=== PATIENT | male | born 1965 | race Caucasian/White ===

== ENCOUNTER 2016-10-07 19:02 | Inpatient (IN) ==
--- NOTE | 2016-10-07 19:54 | PROVIDER DOCUMENTATION ---
This chart was entered by Socorro Alejo Scribe, acting as scribe for Cruzito White MD. HPI-General Adult - General Chief Complaint: Abnormal Lab[s] Stated Complaint: SODIUM LEVEL LOW Time Seen by Provider: 10/07/16 19:35 Source: other (care transition coordinator) Allergies/Adverse Reactions: Patient Allergies Allergy/AdvReac Type Severity Reaction Status Date / Time No Known Allergies Allergy Verified 10/07/16 19:46 Home Medications: Home Medication List Medication Instructions Recorded Confirmed Last Taken Type Buspirone HCl 15 mg PO TID 05/30/14 07/28/15 07/28/15 15:00 History Docusate Sodium 100 mg PO PRN PRN 05/30/14 07/28/15 05/13/15 08:00 History Enalapril Maleate [Vasotec] 10 mg PO DAILY 05/30/14 07/28/15 07/28/15 07:00 History Fluoxetine [Prozac] 40 mg PO DAILY 05/30/14 07/28/15 07/28/15 07:00 History LOVAstatin [Mevacor] 40 mg PO QHS 05/30/14 07/28/15 07/27/15 19:00 History Levetiracetam 500 mg PO BID 05/30/14 07/28/15 07/28/15 07:00 History Levothyroxine [Synthroid] 25 microgm PO DAILY 05/30/14 07/28/15 07/28/15 07:00 History Lorazepam 1 mg PO BID 05/30/14 07/28/15 07/28/15 07:00 History Metformin HCl 1,000 mg PO BID 05/30/14 07/28/15 07/28/15 07:00 History Metoprolol Succinate E.r. [Toprol 100 mg PO DAILY 05/30/14 07/28/15 07/28/15 07: 00 History Xl] Quetiapine [Seroquel] 400 mg PO QHS 05/30/14 07/28/15 07/27/15 19:00 History Risperidone 2 mg PO BID 05/30/14 07/28/15 07/28/15 07:00 History Terbinafine HCl [Terbinafine] 15 gm TP DAILY 05/30/14 07/28/15 07/28/15 07:00 History Meloxicam [Mobic] 7.5 mg PO DAILY 05/01/15 07/28/15 07/28/15 07:00 History Gemfibrozil 600 mg PO BID 07/28/15 07/28/15 07/28/15 07:00 History Polyethylene Glycol 3350 [Miralax] 17 gm PO DAILY 07/28/15 07/28/15 07/28/15 07: 00 History Quetiapine Fumarate 100 mg PO DAILY 07/28/15 07/28/15 07/28/15 07:00 History - History of Present Illness -Gen Adult Nature of Presenting Problems: 51 year old M presents to the ED with a cc of low sodium. consultants intern states that he has been more shaky than normal, c/o ABD pain, and nausea today. She states that he has also been really unsteady on his feet. She states that he also began 2 new medications last week. consultants intern states that he also drank a lot of water, more than normal. Dr. Campbell viri a sodium level today which was low. Location of Pain/Injury: reports: abdomen Severity: reports: mild Onset/Duration: reports: this afternoon Associated Symptoms: reports: nausea, other (tremors) Similar Symptoms Previously?: No Recently seen or treated by another doctor?: No Review of Systems - Adult - REVIEW OF SYSTEMS - ADULT Constitutional: denies: chills, fever Eyes: reports: no symptoms reported Ears, Nose, Mouth & Throat: reports: no symptoms reported Cardiovascular: reports: no symptoms reported Respiratory: denies: cough, shortness of breath Gastrointestinal: reports: abdominal pain, nausea. denies: diarrhea, vomiting Genitourinary: reports: no symptoms reported Musculoskeletal: reports: no symptoms reported Integumentary: reports: no symptoms reported Neurological: reports: tremors. denies: headache/migraines Psychiatric: reports: no symptoms reported Endocrine: reports: no symptoms reported Hematologic/Lymphatic: reports: no symptoms reported Allergic/Immunologic: reports: no symptoms reported All Other Systems: Reviewed and Negative Past History - Adult - PAST MEDICAL HISTORY-ADULT Review of Records: reports: Nursing Assessment Review, Medications Reviewed Major Childhood Illnesses: reports: denies history Cardiovascular: reports: CHF, HTN Respiratory: reports: denies history Gastrointestinal: reports: denies history Obstetrical/Gynecological: reports: denies history Genitourinary: reports: denies history Musculoskeletal: reports: denies history Neurological: reports: denies history, cognitive dysfunction, Seizures/Epilepsy , speech difficulty Psychiatric: reports: other (MR) Endocrine/Immune: reports: Diabetes Other Conditions: reports: denies history - PRIOR SURGERIES/PROCEDURES Surgical/Procedure History: reports: hernia repair, orthopedic (extremity) (knee ) - IMMUNIZATION STATUS Childhood Immunizations: See Nurse Assessment Flu Vaccine: See Nurse Assessment - FAMILY HISTORY Family History: reviewed, not pertinent, other (unknown) - SOCIAL HISTORY Smoking: non-smoker Substance Use: none/never Alcohol Use Frequency: never Physical Exam-General - PHYSICAL EXAM-ADULT Initial Vital Signs Reviewed: Yes - CONSTITUTIONAL General Appearance: alert, other (tremulous) - RESPIRATORY Respiratory: chest non-tender, lungs clear, normal breath sounds - CARDIOVASCULAR Cardiovascular: normal peripheral pulses, regular rate, rhythm, no edema - GASTROINTESTINAL (ABDOMEN) Abdominal Exam: non tender, soft - SKIN Integumentary: normal color, normal turgor, warm/dry - PSYCHIATRIC Psych/Mental Status: oriented x 3, other (slow affect but care transition coordinator states that this is baseline) Progress - PLAN OF CARE/RESULTS Progress/Plan/Lab Results: Vital Signs - 8 hr 10/07/16 19:13 Temperature 98.1 F Pulse Rate 98 H Respiratory Rate 20 Blood Pressure 133/73 O2 Sat by Pulse Oximetry 100 Orders Category Date Time Status CBC WITH ELECTRONIC DIFF [HEME] Stat Lab 10/07/16 19:42 Uncollected TSH Stat Lab 10/07/16 19:43 Ordered Result Diagrams: 10/07/16 19:30 - CONSULTS/PCP/HOSPITALIST Notification #1 *Consult/PCP/Hospitalist*: Dr. Pichardo(hospitalist) Time Discussed: 19:50 Consult Disposition: Admit Departure - Departure Time of Disposition Decision: 19:53 DIAGNOSIS: Hyponatremia Disposition: ADMITTED INPATIENT 09 Certified Medical Emergency: Emergent Condition: Good Referrals and Follow-Ups: Himanshu Campbell MD [Primary Care Provider] - - Critical Care Note This patient required my direct personal management.: No This chart was documented by the indicated scribe, (Socorro Alejo Scribe) and accurately reflects the services I performed and decisions made by me, Cruzito White MD, as attested by the provider's signature.
[2016-10-07 19:56] LABS: BASO% 0.1 % (0.0-0.8); EOS% 1.2 % (0.0-10.0); HEMATOCRIT 36.3 % (42.0-52.0); HEMOGLOBIN 13.4 g/dL (14.0-18.0); IMM GRAN# 0.02 X1000 (0.0-0.04); IMM GRAN% 0.2 % (0.0-0.5); LYMPH# 1.73 X1000 (1.2-3.4); LYMPH% 20.1 % (20.5-51.1); MANUAL DIFF NEEDED? NO; MCHC 36.9 g/dL (33-37); MCV 81.2 FL (81-99); MONO# 0.67 X1000 (0.11-0.59); MONO% 7.8 % (1.7-9.3); MPV 11.1 FL (7.4-10.4); NEUT% 70.6 % (42.2-75.2); PLT 132 X1000 (130-400); RBC 4.47 XMIL (4.7-6.1)
[2016-10-07 21:50] LABS: AGAP 15; BUN 9 mg/dL (8-22); CALCIUM 8.4 mg/dL (8.8-10.2); CHLORIDE 83 mmol/L (98-107); COSMO 242; SODIUM 120 mmol/L (136-145); TCO2 22 mmol/L (25-35)
[2016-10-07] MEDS ORDERED: NS 1,000 ML IV SCH (23:34)
[2016-10-07] MEDS ORDERED: NEOSPORIN OINTMENT TUBE TOP PRN (23:34)
[2016-10-07] MEDS ORDERED: TYLENOL PO PRN (23:34)
[2016-10-07] MEDS ORDERED: ZOFRAN IV PRN (23:34)
[2016-10-07] MEDS ORDERED: IMODIUM PO PRN (23:34)
[2016-10-08 00:56] LABS: AGAP 16; BUN 9 mg/dL (8-22); CALCIUM 7.9 mg/dL (8.8-10.2); CHLORIDE 83 mmol/L (98-107); COSMO 238; POTASSIUM 3.8 mmol/L (3.5-5.1); TCO2 19 mmol/L (25-35)
[2016-10-08 00:58] LABS: SODIUM 118 mmol/L (136-145)
--- NOTE | 2016-10-08 02:14 | HISTORY AND PHYSICAL ---
PRIMARY CARE PROVIDER: Dr. Campbell. CHIEF COMPLAINT: Abnormal labs, with low sodium. HISTORY OF PRESENT ILLNESS: Mr. Colon is a 51-year-old male with a past medical history most notable for diabetes mellitus type 2, mental retardation, hypertension,and hypothyroidism. He presented to the [facility] after being seen at Dr. Campbell's office for reported increased water intake, and that he is now having unsteady gait, and has gained 14 pounds in 2 days. 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 He was previously admitted in April 2015 for excessive water intake and resulting hyponatremia. He is currently a resident at a snf with [facility] in [place]. She reports that yesterday they had estimated that he drank anywhere from 2300 to 2500 mL of water. She states that he went to bed and woke up this morning with onset of unsteady gait. She stated that he could not even walk down the stairs this morning, that he had to sit down and scoot down the steps, and that his gait when walking has been unsteady as well. She also reports that he does have a slight tremor continuously, that this seems to be worsened as well. Though the patient does have a history of mental retardation , she reports that he does appear to be at his baseline mental status. He knows his name and that he is at the hospital. He stated it was October, though he was only 3 days off on the correct month. He was able to follow commands, and is able to answer simple questions. She does report that he has had a 14-pound weight gain in 2 days, with 11 pounds of it being since last night. She also reports that he has had some nausea as well. He was seen at Dr. Campbell's office today , and had a sodium drawn. They also ordered for him to have a new prescription for desmopressin and olanzapine to try to help with his polydipsia, though he actually has not started these medicines at this time. At this time, we will admit the patient for further treatment and evaluation of his hyponatremia. REVIEW OF SYSTEMS: A 12-point review of systems was conducted with the patient. All were negative, except for pertinent positives mentioned above in HPI. PAST MEDICAL HISTORY: 1. Diabetes mellitus type 2. 2. Mental retardation. 3. Hypothyroidism. 4. Hyperlipidemia. 5. Seizures. PAST SURGICAL HISTORY: No known past surgical history. FAMILY HISTORY: We are unable to obtain the patient's family history due to his mental condition. I did ask his caregiver if she knew of any major family medical problems, and she states no, that they do not have any knowledge of this history. SOCIAL HISTORY: He currently is a resident at a snf, with [facility] [email or web address] [facility] in [place]. She denies him having any past or present alcohol or illicit drug use, but does report that he does not smoke cigarettes, though does like to use chewing tobacco. ALLERGIES: Patient has no known allergies. HOME MEDICATIONS: 1. Buspirone 15 mg p.o. t.i.d. 2. Desmopressin 0.2 mg p.o. b.i.d. 3. Enalapril 10 mg p.o. daily. 4. Prozac 40 mg p.o. daily. 5. Gemfibrozil 600 mg p.o. b.i.d. 6. Hydroxyzine 12.5 mg p.o. b.i.d. 7. Keppra 500 mg p.o. b.i.d. 8. Synthroid 25 mcg p.o. daily. 9. Imodium 4 mg p.o. as directed. 10. Lorazepam 1 mg p.o. q.p.m. 11. Lorazepam 0.5 mg p.o. q.a.m. 12. Mevacor 40 mg p.o. at bedtime. 13. Mobic 7.5 mg p.o. daily. 14. Metformin 1000 mg p.o. b.i.d. 15. Toprol-XL 100 mg p.o. daily. 16. Bactroban ointment 1 application topically b.i.d. to affected area. 17. Neosporin ointment 1 application topically p.r.n. to affected area. 18. Olanzapine 10 mg p.o. b.i.d. 19. MiraLAX 17 g p.o. daily. 20. Seroquel 50 mg p.o. q.a.m. 21. Seroquel 100 mg p.o. at 3 p.m. daily. 22. Seroquel 400 mg p.o. at bedtime. 23. Risperidone 2 mg p.o. b.i.d. 24. Trazodone 200 mg p.o. at bedtime. DIAGNOSTIC DATA AND LABORATORY RESULTS: White blood cell count 8.6, hemoglobin 13.4, hematocrit 36.3, platelet count is 132,000. Sodium 120, potassium 4, chloride 83, bicarbonate 22, BUN 9, creatinine 0.6. GFR greater than 60. Glucose 117. Serum osmolality was 246. Calcium 8.4. ProBNP 437. TSH 5.68. EKG showed normal sinus rhythm, with a prolonged QT, at a rate of 88. QTc was 491. PHYSICAL EXAMINATION: VITAL SIGNS: Temperature 98.3 degrees. Heart rate 82, respirations 18, blood pressure 122/82. Oxygen saturation is 97% on room air. GENERAL: Mr. Colon is a pleasant 51-year-old male, who is resting comfortably in the ER stretcher. He was in no acute distress. He was awake, alert, and able to answer simple questions appropriately, and follow commands. HEENT: Head is atraumatic, normocephalic. Pupils are equal, round, reactive to light, 3 mm bilaterally and brisk. Oral mucosa was moist. Oropharynx clear. NECK: Supple. Trachea midline. No JVD noted. CARDIOVASCULAR: The patient has normal S1, S2. No murmurs, gallops, or rubs appreciated, with a regular rate and rhythm. PULMONARY: Patient has symmetrical chest expansion bilaterally. Lung sounds are clear to auscultation bilaterally. Full larsen. ABDOMEN: Soft, nontender, nondistended. Bowel sounds are present in all 4 quadrants. EXTREMITIES: No cyanosis, clubbing, or edema noted. Pulse, motor, and sensory were intact in all extremities. Pedal pulses were 3+ bilaterally. INTEGUMENTARY: The patient's skin is pink, warm, dry, and intact. NEUROLOGICAL: The patient is alert and oriented to person and place. He was slightly off on the month. He stated that it was October, though october is only 3 days away. He was able to follow simple commands and answer simple questions. His caregiver at bedside who is with him on a daily basis states that this is his current baseline mental status. The patient does have a tremor noted in all extremities that his caregiver states is slightly worse than normal, though cranial nerves 2-12 appear to be grossly intact. ASSESSMENT AND PLAN: 1. Hyponatremia. For this, we will put the patient on normal saline at 125 mL/ h. We will do q.4 hour BMPs. We will closely monitor his neurological status. We have placed him to have q.4 hours neuro checks. He is on seizure and aspiration precautions. We will closely monitor his sodium level and adjust his iv normal saline infusion rate accordingly. He has also been placed on a 1000 mL fluid intake restriction daily as well. 2. Hypertension. Will continue the patient's home medications for this, and will continue to monitor. 3. Diabetes mellitus type 2. Will continue his metformin, and will do fingerstick blood sugars in the morning and at bedtime, and will continue to monitor. 4. Hypothyroidism. We will continue the patient's Synthroid. 5. Mental retardation. We will continue the patient's medications for this as well, and we will closely monitor his neurological status. 6. Hyperlipidemia. We will continue the patient's lovastatin. The patient will be placed on the medical floor with telemetry. He will have vital signs q.4 hours. DVT prophylaxis will be provided with SCDs. We will do daily weights and weight upon admission. He will be placed on a diabetic diet. We will continue to monitor his sodium levels, as well as his neurological status closely. Pending labs at this time are a urinalysis, with urine osmolality and urine sodium. Further orders and recommendations pending hospital course, diagnostic studies, and a physician evaluation. Dictated by BRIGHT Norris for Ivan Pichardo MD cc: Ivan Pichardo MD MTDD
[2016-10-08 03:28] LABS: EOS# 0.17 X1000 (0.0-0.7); EOS% 2.2 % (0.0-10.0); HEMATOCRIT 32.6 % (42.0-52.0); HEMOGLOBIN 12.1 g/dL (14.0-18.0); IMM GRAN# 0.02 X1000 (0.0-0.04); IMM GRAN% 0.3 % (0.0-0.5); LYMPH# 2.28 X1000 (1.2-3.4); MANUAL DIFF NEEDED? NO; MCHC 37.1 g/dL (33-37); MCV 80.9 FL (81-99); MONO% 10.5 % (1.7-9.3); MPV 10.4 FL (7.4-10.4); PLT 124 X1000 (130-400); RBC 4.03 XMIL (4.7-6.1)
[2016-10-08 03:56] LABS: SODIUM 118 mmol/L (136-145)
[2016-10-08 03:57] LABS: AGAP 9; BUN 8 mg/dL (8-22); CALCIUM 7.9 mg/dL (8.8-10.2); CHLORIDE 85 mmol/L (98-107); COSMO 237; POTASSIUM 3.5 mmol/L (3.5-5.1); TCO2 24 mmol/L (25-35)
--- NOTE | 2016-10-08 05:22 | EKG Report ---
Test Performed on : 10/07/2016 10:15:07 PM Test Reason : Hyponatremia Blood Pressure : / mmHG Vent. Rate : 088 BPM Atrial Rate : 088 BPM P-R Int : 140 ms QRS Dur : 098 ms QT Int : 406 ms P-R-T Axes : 026 001 025 degrees QTc Int : 491 ms Normal sinus rhythm. Prolonged QT Abnormal ECG No previous ECGs available Unconfirmed Result
[2016-10-08 05:39] LABS: URINE CULTURE NEEDED? NO; URINE MICRO REVIEW NEEDED? NO; URINE SOURCE CLEAN CATCH
[2016-10-08 05:42] LABS: BILIRUBIN URINE NEGATIVE (NEGATIVE); BLOOD URINE NEGATIVE (NEGATIVE); COLOR YELLOW; GLUCOSE URINE TRACE mg/dL (NEGATIVE); LEUKOCYTES URINE NEGATIVE (NEGATIVE); NITRITE URINE NEGATIVE (NEGATIVE); PH URINE 7.5; PROTEIN URINE NEGATIVE (NEGATIVE); SP GRAVITY URINE 1.015; TURBIDITY URINE HAZY (CLEAR); UR EPITHELIAL CELLS <10 /HPF (<10); URINE BACTERIA NEGATIVE /HPF; URINE RBC <10 /HPF (<10); URINE WBC <10 /HPF (<10); UROBILINOGEN URINE NORMAL (NORMAL)
[2016-10-08] MEDS ORDERED: SYNTHROID PO SCH ×2 (07:00→13:13)
[2016-10-08 08:25] LABS: AGAP 15; BUN 7 mg/dL (8-22); CALCIUM 7.7 mg/dL (8.8-10.2); CHLORIDE 82 mmol/L (98-107); COSMO 235; POTASSIUM 3.5 mmol/L (3.5-5.1); TCO2 20 mmol/L (25-35)
[2016-10-08 08:27] LABS: SODIUM 117 mmol/L (136-145)
[2016-10-08] MEDS ORDERED: SEROQUEL PO SCH (09:00)
[2016-10-08] MEDS ORDERED: MOBIC PO SCH (09:00)
[2016-10-08] MEDS ORDERED: PROZAC PO SCH (09:00)
[2016-10-08 12:38] LABS: AGAP 15; BUN 6 mg/dL (8-22); CALCIUM 7.8 mg/dL (8.8-10.2); CHLORIDE 80 mmol/L (98-107); COSMO 235; POTASSIUM 3.9 mmol/L (3.5-5.1); TCO2 22 mmol/L (25-35)
[2016-10-08 12:42] LABS: SODIUM 117 mmol/L (136-145)
[2016-10-08] MEDS ORDERED: SAMSCA PO ONE (13:11)
[2016-10-08] MEDS: BUSPAR PO SCH ×3 (13:52→17:21)
[2016-10-08] MEDS: ATIVAN PO SCH ×2 (13:52→21:16)
[2016-10-08] MEDS: BACTROBAN OINTMENT TOP SCH ×2 (13:52→21:35)
[2016-10-08] MEDS: HYDROXYZINE PO SCH ×2 (13:59→21:16)
[2016-10-08] MEDS: GLUCOPHAGE PO SCH ×2 (13:59→21:16)
[2016-10-08] MEDS: RISPERDAL PO SCH ×2 (14:00→21:15)
[2016-10-08] MEDS: KEPPRA PO SCH ×2 (14:00→21:16)
[2016-10-08] MEDS: LOPID PO SCH ×2 (14:00→21:16)
[2016-10-08] MEDS: MIRALAX PO SCH (14:00)
[2016-10-08] MEDS: TOPROL XL PO SCH (14:01)
[2016-10-08] MEDS: VASOTEC PO SCH (14:01)
--- NOTE | 2016-10-08 14:55 | PROGRESS NOTE ---
DATE: 10/08/2016 SUBJECTIVE: This morning, Mr. Colon continues to be stable. He nonverbal, but he is able to understand a few things. He says he is not in pain. OBJECTIVE: Vital signs: Blood pressure is 115/97, pulse of 77, respirations 18, temperature 98.7. General: Mr. Colon is a 51-year-old male, he is in bed. Did not seem to be in any distress. HEENT: Mucosa is pink and moist. Anicteric and acyanotic. Neck: Supple. Chest: Good air entry bilaterally. No crepitations. No rhonchi. Cardiovascular: Regular rate and rhythm. Abdomen: Soft, nontender. Extremities: No pedal edema. PHLEBOTOMIST MEDICAL LAB ASSISTANT: Patient is awake, alert, but nonverbal, is able to nod to yes or no questions. Moves all extremities equally. LABORATORY DATA: WBC is 7.59, hemoglobin is 4.4, platelet count of 124,000. Chemistry is reviewed. sodium is 117, potassium is 3.9, chloride is 80, bicarb is 22, TSH on presentation was 5.698. The urine sample did show osmolarity of 542, with a random glucose of 183 consistent with SIADH. ASSESSMENT: 1. Severe hyponatremia with urine studies consistent with syndrome of inappropriate antidiuretic hormone secretion. Patient is on a lot of medications at home that could potentially cause this, including quetiapine, fluoxetine, desmopressin among others. I will therefore go ahead and discontinue for sure fluoxetine and desmopressin, cut down the quetiapine and continue, give the patient a dose of Samsca and repeat the sodium in the next couple of hours. 2. Diabetes mellitus. 3. Hypothyroidism, with elevated thyroid stimulating hormones consistent with the fact that there is inadequate supplementation. We will go up on his levothyroxine. 4. History of seizures. We will continue with medications. 5. Mental retardation. Noted. 6. In general Mr. Colon continues to be nonverbal, but he is alert has not had any seizures. We will discontinue the fluoxetine and cut down on the quetiapine, discontinue the meloxicam. We will give him a dose of Samsca and repeat the serum electrolytes. cc: Florencio Ashraf MD
[2016-10-08] MEDS: SEROQUEL PO SCH ×2 (16:06→21:16)
[2016-10-08 16:18] LABS: AGAP 16; BUN 6 mg/dL (8-22); CALCIUM 7.7 mg/dL (8.8-10.2); CHLORIDE 79 mmol/L (98-107); COSMO 231; POTASSIUM 3.5 mmol/L (3.5-5.1); TCO2 20 mmol/L (25-35)
[2016-10-08 16:20] LABS: SODIUM 115 mmol/L (136-145)
[2016-10-08] MEDS: MEVACOR PO SCH (17:21)
[2016-10-08 18:48] LABS: AGAP 18; BUN 5 mg/dL (8-22); CALCIUM 8.1 mg/dL (8.8-10.2); CHLORIDE 80 mmol/L (98-107); COSMO 235; POTASSIUM 3.6 mmol/L (3.5-5.1); TCO2 19 mmol/L (25-35)
[2016-10-08 18:50] LABS: SODIUM 117 mmol/L (136-145)
[2016-10-08] MEDS: DESYREL PO SCH (21:16)
[2016-10-09 00:21] LABS: AGAP 20; BUN 8 mg/dL (8-22); CALCIUM 8.5 mg/dL (8.8-10.2); CHLORIDE 80 mmol/L (98-107); COSMO 239; TCO2 17 mmol/L (25-35)
[2016-10-09 00:27] LABS: SODIUM 117 mmol/L (136-145)
[2016-10-09 04:27] LABS: AGAP 15; BUN 10 mg/dL (8-22); CALCIUM 8.5 mg/dL (8.8-10.2); CHLORIDE 83 mmol/L (98-107); COSMO 242; POTASSIUM 4.5 mmol/L (3.5-5.1); TCO2 21 mmol/L (25-35)
[2016-10-09 04:32] LABS: SODIUM 119 mmol/L (136-145)
[2016-10-09] MEDS: SYNTHROID PO SCH (06:11)
[2016-10-09 06:43] LABS: EOS# 0.01 X1000 (0.0-0.7); EOS% 0.1 % (0.0-10.0); HEMATOCRIT 38.9 % (42.0-52.0); HEMOGLOBIN 14.5 g/dL (14.0-18.0); IMM GRAN# 0.03 X1000 (0.0-0.04); IMM GRAN% 0.2 % (0.0-0.5); LYMPH# 0.75 X1000 (1.2-3.4); LYMPH% 4.9 % (20.5-51.1); MANUAL DIFF NEEDED? NO; MCH 29.8 PG (27-31); MCHC 37.3 g/dL (33-37); MCV 79.9 FL (81-99); MONO% 6.5 % (1.7-9.3); MPV 11.6 FL (7.4-10.4); NEUT% 88.3 % (42.2-75.2); PLT 147 X1000 (130-400); RBC 4.87 XMIL (4.7-6.1)
[2016-10-09 06:58] LABS: AGAP 17; BUN 10 mg/dL (8-22); CALCIUM 8.7 mg/dL (8.8-10.2); CHLORIDE 86 mmol/L (98-107); COSMO 245; POTASSIUM 4.2 mmol/L (3.5-5.1); SODIUM 121 mmol/L (136-145); TCO2 18 mmol/L (25-35)
[2016-10-09] MEDS ORDERED: SAMSCA PO ONE (07:13)
[2016-10-09] MEDS: BUSPAR PO SCH ×3 (08:36→17:54)
[2016-10-09] MEDS: LOPID PO SCH ×2 (08:36→20:25)
[2016-10-09] MEDS: VASOTEC PO SCH (08:36)
[2016-10-09] MEDS: KEPPRA PO SCH ×2 (08:36→20:26)
[2016-10-09] MEDS: HYDROXYZINE PO SCH ×2 (08:36→20:26)
[2016-10-09] MEDS: TOPROL XL PO SCH (08:36)
[2016-10-09] MEDS: ATIVAN PO SCH ×2 (08:36→20:26)
[2016-10-09] MEDS: BACTROBAN OINTMENT TOP SCH ×2 (08:36→20:26)
[2016-10-09] MEDS: GLUCOPHAGE PO SCH ×2 (08:36→20:26)
[2016-10-09] MEDS: RISPERDAL PO SCH ×2 (08:36→20:26)
[2016-10-09] MEDS: MIRALAX PO SCH (08:37)
--- NOTE | 2016-10-09 16:22 | PROGRESS NOTE ---
DATE: 10/09/2016 SUBJECTIVE: Today, Mr. Colon referred to be doing a little better. Seems to be more alert and more communicative today. OBJECTIVE: Vital signs: Blood pressure is 114/73, pulse of 120, temperature is 98.6, respirations 20. General: Mr. Colon is a 51-year-old male. He is in bed, and does not seem to be in any distress. HEENT: Mucosa is pink and moist. Anicteric. Acyanotic. Neck: Supple. Chest: Air entry was bilaterally reduced. There are some time diffuse end-expiratory wheezing. Cardiovascular: Regular rate and rhythm. No murmurs, no rubs. No gallops. Abdomen: Soft. Extremities: No pedal edema. TOBACCO DIPPER: Patient is awake and alert. He is nonverbal. Obeys commands. He states he is doing fine with nodding head. LABORATORY DATA: WBC is 15.35. Hemoglobin is 14.5, platelet count is 147. Chemistry: Sodium is 121, potassium 4.2, chloride is 86, bicarb is 18. ASSESSMENT: 1. Severe hyponatremia, secondary to SIADH. Sodium is slightly up to 121 today. We would re-dose him with another Samsca and recheck on his sodium early in the morning. 2. Diabetes mellitus, stable. 3. Hypothyroidism. Will continue with current dose of the thyroid supplements. 4. History of seizures on medication. 5. Mental retardation, noted. 6. Bronchospasms. Unsure if the patient has suffered from aspiration versus aspiration pneumonitis versus some atelectasis. I will do a chest x-ray early in the morning to follow up on that. For now, we would nebulize him and encourage him to sit up in bed, and in the chair and get him incentive spirometer. So in general, I think Mr. Colon is doing fine. Sodium is getting better. We will repeat it tomorrow. If it is doing fine, we might be able to discharge him soon. cc: Florencio Ashraf MD
[2016-10-09] MEDS: MEVACOR PO SCH (17:54)
[2016-10-09] MEDS: SEROQUEL PO SCH ×2 (17:54→20:26)
[2016-10-09] MEDS: DESYREL PO SCH (20:26)
[2016-10-10] MEDS: SYNTHROID PO SCH (06:13)
[2016-10-10 06:40] LABS: MANUAL DIFF NEEDED? NO
[2016-10-10 06:46] LABS: BASO% 0.1 % (0.0-0.8); EOS# 0.14 X1000 (0.0-0.7); EOS% 1.5 % (0.0-10.0); HEMATOCRIT 41.9 % (42.0-52.0); HEMOGLOBIN 15.1 g/dL (14.0-18.0); IMM GRAN# 0.02 X1000 (0.0-0.04); IMM GRAN% 0.2 % (0.0-0.5); LYMPH# 1.22 X1000 (1.2-3.4); LYMPH% 13.2 % (20.5-51.1); MCH 29.6 PG (27-31); MCV 82.2 FL (81-99); MONO# 1.04 X1000 (0.11-0.59); MONO% 11.2 % (1.7-9.3); MPV 11.3 FL (7.4-10.4); NEUT% 73.8 % (42.2-75.2); PLT 167 X1000 (130-400)
[2016-10-10 07:11] LABS: AGAP 17; BUN 11 mg/dL (8-22); CHLORIDE 99 mmol/L (98-107); COSMO 272; POTASSIUM 4.3 mmol/L (3.5-5.1); SODIUM 135 mmol/L (136-145); TCO2 19 mmol/L (25-35)
[2016-10-10] MEDS: GLUCOPHAGE PO SCH ×2 (08:43→20:56)
[2016-10-10] MEDS: ATIVAN PO SCH ×2 (08:43→20:57)
[2016-10-10] MEDS: LOPID PO SCH ×2 (08:43→20:57)
[2016-10-10] MEDS: HYDROXYZINE PO SCH ×2 (08:43→20:56)
[2016-10-10] MEDS: KEPPRA PO SCH ×2 (08:43→20:56)
[2016-10-10] MEDS: RISPERDAL PO SCH ×2 (08:43→20:57)
[2016-10-10] MEDS: TOPROL XL PO SCH (08:43)
[2016-10-10] MEDS: BUSPAR PO SCH ×3 (08:43→17:13)
[2016-10-10] MEDS: VASOTEC PO SCH (08:43)
[2016-10-10] MEDS: MIRALAX PO SCH (08:44)
[2016-10-10] MEDS: BACTROBAN OINTMENT TOP SCH ×2 (08:44→20:57)
[2016-10-10] MEDS: SODIUM CHLORIDE PO SCH ×2 (08:49→20:57)
--- NOTE | 2016-10-10 11:54 | PROGRESS NOTE ---
DATE: 10/10/2016 SUBJECTIVE: Today Mr. Colon is stable. There are not noted to be any complaints from the nursing staff. He has been tolerating his diet. OBJECTIVE: Vital signs: Blood pressure is 133/79, pulse 119, respiration 20, temperature 98.2. General: Mr. Colon is a 51-year-old male. He is in bed. He does not seem to be in any distress. HEENT: Mucosa is pink. Anicteric and acyanotic. Neck: Supple. Chest: Good air entry bilaterally, a few bibasilar crepitations. Cardiovascular: Regular rate and rhythm. Abdomen: Soft. Extremities: No pedal edema. TELECOM ANALYST: The patient is awake, alert, is nonverbal, obeys some commands, able to say yes or no with nodding. LABORATORY DATA: WBCs 9.25, hemoglobin 15.1, platelet count of 67. Chemistry: Sodium is 135, potassium 43, chloride 99, bicarbonate is 19. ASSESSMENT: 1. Severe hyponatremia secondary to syndrome of inappropriate antidiuretic hormone from likely medications. Certain medications have been discontinued. Sodium is gradually improving. Patient got 2 doses of Samsca. I will now just use fluid restrictions and salt tablets to correct the sodium. 2. Diabetes mellitus, stable. 3. Hypothyroidism. Will continue with thyroid supplement. 4. History of seizure. 5. Mental retardation. 6. Bronchospasm, improved. Think it is probably due to atelectasis. Will, however, await the chest x-rays. In general, I think Mr. Colon is doing fine. Will continue progressively correcting his underlying sodium. Hopefully, will be able to discharge him on the Wednesday, to his senior living. cc: Florencio Ashraf MD
[2016-10-10] MEDS: SEROQUEL PO SCH ×2 (14:54→20:57)
[2016-10-10] MEDS: MEVACOR PO SCH (17:13)
[2016-10-10] MEDS: DESYREL PO SCH (20:57)
[2016-10-11] MEDS: SYNTHROID PO SCH (06:00)
[2016-10-11 06:41] LABS: AGAP 15; BUN 12 mg/dL (8-22); CALCIUM 9.1 mg/dL (8.8-10.2); CHLORIDE 99 mmol/L (98-107); COSMO 273; POTASSIUM 4.2 mmol/L (3.5-5.1); SODIUM 136 mmol/L (136-145); TCO2 22 mmol/L (25-35)
--- NOTE | 2016-10-11 07:27 | Diag Imaging Result Document ---
PROCEDURE NAME: CHEST-PORTABLE - 10/11/2016 PORTABLE CHEST: COMPARISON: Compared to 05/01/2015. FINDINGS: Poor inspiratory effort. The heart is not enlarged. The vessels are not distended. No pleural effusions identified. No pneumonia. There is granuloma in the upper right lung. IMPRESSION: Poor inspiratory effort, otherwise negative exam.
[2016-10-11] MEDS: MIRALAX PO SCH (08:25)
[2016-10-11] MEDS: KEPPRA PO SCH ×2 (08:25→20:08)
[2016-10-11] MEDS: RISPERDAL PO SCH ×2 (08:26→20:08)
[2016-10-11] MEDS: ATIVAN PO SCH ×2 (08:26→20:08)
[2016-10-11] MEDS: HYDROXYZINE PO SCH ×2 (08:26→20:09)
[2016-10-11] MEDS: TOPROL XL PO SCH (08:26)
[2016-10-11] MEDS: LOPID PO SCH ×2 (08:26→20:11)
[2016-10-11] MEDS: BUSPAR PO SCH ×3 (08:26→16:12)
[2016-10-11] MEDS: VASOTEC PO SCH (08:26)
[2016-10-11] MEDS: BACTROBAN OINTMENT TOP SCH ×2 (08:26→20:05)
[2016-10-11] MEDS: SODIUM CHLORIDE PO SCH ×2 (08:26→20:08)
[2016-10-11] MEDS: GLUCOPHAGE PO SCH ×2 (08:26→20:08)
--- NOTE | 2016-10-11 13:58 | PROGRESS NOTE ---
DATE: 10/11/2016 SUBJECTIVE: Today Mr. Colon referred to be doing okay. Denies any complaint. OBJECTIVELY: Vitals: Blood pressure is 114/78, pulse of 102, respiration is 20, temperature 98.1 degrees. General: Mr. Colon 51-year-old male. He was sitting up in the bed. No distress. HEENT: Mucosa is pink and moist. Anicteric. Acyanotic. Neck: Supple. Chest: Clear. Cardiovascular: Regular rate and rhythm. Abdomen: Soft, nontender. Extremities: No pedal edema. SIGN LANGUAGE INTERPRETER: Patient is alert, continues to be nonverbal. LABORATORY DATA: There is no CBC for today. Chemistry. Sodium is 136, potassium is 4.2, chloride is 99, bicarb is 22, glucose is fine. ASSESSMENT: 1. Severe hyponatremia secondary to syndrome of inappropriate antidiuretic hormone secretion. This is improved. 2. Diabetes mellitus controlled. 3. Hypothyroidism. Will continue with his thyroid supplements. 4. History of seizures. 5. Mental retardation noted. 6. Bronchospasm due to possible atelectasis is improved. PLAN: So in general I think Mr. Colon is a whole lot better today. Will be pending the skilled nursing to come and evaluate him tomorrow so we can get him discharged back to the skilled nursing. cc: Florencio Ashraf MD
[2016-10-11] MEDS: SEROQUEL PO SCH ×2 (14:21→20:08)
[2016-10-11] MEDS: MEVACOR PO SCH (16:12)
[2016-10-11] MEDS: DESYREL PO SCH (20:08)
[2016-10-12] MEDS: SYNTHROID PO SCH (06:32)
[2016-10-12 08:10] VITALS: BP 115/71
[2016-10-12] MEDS: ATIVAN PO SCH (09:34)
[2016-10-12] MEDS: HYDROXYZINE PO SCH (09:34)
[2016-10-12] MEDS: MIRALAX PO SCH (09:34)
[2016-10-12] MEDS: KEPPRA PO SCH (09:34)
[2016-10-12] MEDS: TOPROL XL PO SCH (09:34)
[2016-10-12] MEDS: GLUCOPHAGE PO SCH (09:36)
[2016-10-12] MEDS: LOPID PO SCH (09:36)
[2016-10-12] MEDS: SODIUM CHLORIDE PO SCH (09:36)
[2016-10-12] MEDS: RISPERDAL PO SCH (09:36)
[2016-10-12] MEDS: BUSPAR PO SCH (09:36)
[2016-10-12] MEDS: BACTROBAN OINTMENT TOP SCH (09:37)
[2016-10-12] MEDS: VASOTEC PO SCH (09:41)
--- NOTE | 2016-10-12 16:16 | DISCHARGE SUMMARY ---
DATE: 10/12/2016 DISPOSITION: [facility]. CONSULTATIONS: None. INVASIVE PROCEDURES: None. ADMISSION DIAGNOSES: 1. Hyponatremia. 2. Hypertension. 3. Diabetes. 4. Hypothyroidism. DISCHARGE DIAGNOSES: 1. Severe hyponatremia secondary to syndrome of inappropriate antidiuretic hormone secretion. 2. Diabetes mellitus. 3. Hypothyroidism. 4. History of seizures. 5. Mental retardation. 6. Bronchospasm due to atelectasis improved. DISCHARGE MEDICATIONS: 1. Risperdal 2 mg b.i.d. 2. Quetiapine 400 at bedtime. 3. Metoprolol 100 mg daily. 4. Metformin 1000 b.i.d. 5. Lorazepam 1 mg p.o. daily. 6. Lovastatin 40 mg daily. 7. Levothyroxine 500 b.i.d. 8. Fluoxetine has been discontinued. 9. Enalapril 10 mg daily. 10. Buspirone 50 mg 3 times per day. 11. Meloxicam has been discontinued. 12. Gemfibrozil 600 b.i.d. 13. Quetiapine in the morning has been discontinued. 14. Olanzapine b.i.d. has been discontinued. 15. Desmopressin has been discontinued. 16. Acetaminophen p.r.n. PRESENTING COMPLAINT: Abnormal labs. HISTORY OF PRESENTING COMPLAINT: Mr. Colon is a 51-year-old male history of diabetes mellitus, mental retardation, hypothyroidism presented to Dr. Parker office due to unsteady gait and 14 pounds weight gain. From what we were told patient is avid water drinker. Upon presentation some labs were drawn and was found to have low sodium so patient was referred to the hospital for admission. In the hospital patient got admitted. Initial sodium was 120, it went down to 115 on the 2nd day because patient was being hydrated as well. This was discontinued. Patient was given 2 doses of Samsca and the sodium improved to the level of 136, 135. He refers to be doing a lot better today, he is completely asymptomatic. No nausea , no vomiting, no chest pain. Patient is tolerating his meals. Would therefore be discharging him on fluid restriction to only 1000 mL per day and to continue with the salt tablets. Fluoxetine has been discontinue and trazodone has also been limited to only 1 time dose. We think this were confounding factor for the low sodium. Patient's TSH was also remarkably high which is consistent with non-sufficient supplementation. We therefore went up on the levothyroxine to 75 daily. The patient is advised to check on his BMP in about a week and TSH in about 4-6 weeks. Time spent for discharge was 36 minutes. cc: Florencio Ashraf MD MTDD
== END 2016-10-12 13:39 | disposition home or self-care (01) ==
LOC: ED 19:02 → 3N 22:23 → SUATTDRO 22:23 → 3N 22:35
PROVIDERS: ATTEND Internal Medicine